=== PATIENT | female | born 1960 | race Caucasian/White ===

== ENCOUNTER 2024-07-23 08:27 | Day surgery (SDC) | payer MEDICARE ==
[2024-07-23 09:57] VITALS: BP 121/62; TEMP 97.9
== END 2024-07-23 10:30 | disposition home or self-care (01) ==
LOC: CSHRAD 08:27
PROVIDERS: ATTEND Nurse Practitioner Family
PROC: B02 Imaging, Central Nervous System, Computerized Tomography (CT Scan) (ICD-10-PCS; principal; 2024-07-23)
DX: M96.1 Postlaminectomy syndrome, not elsewhere classified (principal); M54.12 Radiculopathy, cervical region; Z88.1 Allergy status to other antibiotic agents; Z88.8 Allergy status to other drugs, medicaments and biological substances; Z91.041 Radiographic dye allergy status
CPT/HCPCS: 62284; 72132; 77003

== ENCOUNTER 2025-03-01 10:26 | Outpatient (CLI) | payer MEDICARE | END 2025-03-01 10:27 | disposition home or self-care (01) | LOC: CSHCT 10:26 | PROVIDERS: ATTEND Surgery | DX: K68.12 Psoas muscle abscess (principal) | CPT/HCPCS: 74176 ==